=== PATIENT | male | born 1985 | race Two or more races ===

== ENCOUNTER 2021-07-26 00:08 | Emergency (ER) | payer MEDICAID, SELFPAY ==
[2021-07-26 00:29] VITALS: BP 125/77; PULSE 107; RESP 16; TEMP 37.8; O2SAT 97; BMI 41.0
[2021-07-26 00:59] LABS: COVID-19 Test Positive (Negative); IDNOW Serial# 9DD0AD1C; Strep A Nucleic Acid Negative (Negative)
--- NOTE | 2021-07-26 01:25 | ED_ITS ---
HPI - General Adult General Chief complaint: General Medical Stated complaint: throat pain, fever Time Seen by Provider: 07/26/21 01:25 Source: patient Mode of arrival: ambulatory Limitations: no limitations History of Present Illness HPI narrative: Patient will remain vaccinated against COVID 19 2 doses last dose was 3 months ago had a contact with colleague who was COVID-19 positive few days ago patient with complaining of throat itchiness body aches cough slight shortness of breath low-grade fever on arrival patient temperature 100.1 degrees saturating 97% on room air Related Data Previous Rx's Medication Instructions Recorded benzonatate 200 mg capsule 200 mg PO TID PRN #20 cap 07/26/21 dexamethasone 6 mg tablet 6 mg PO DAILY #7 tab 07/26/21 (Decadron) Allergies Allergy/AdvReac Type Severity Reaction Status Date / Time No Known Allergies Allergy Verified 07/26/21 00:34 [No Known Allergies*] Review of Systems Review of Systems: Yes all other systems are reviewed and are negative [facility] Social History Social History Advance Directives: No Advance Directives Information Provided: Yes Physical Exam Vital Signs: Vital Signs: Last Vital Signs Temp 100.1 F 07/26/21 00:29 Pulse 107 H 07/26/21 00:29 Resp 16 07/26/21 00:29 BP 125/77 07/26/21 00:29 Pulse Ox 97 07/26/21 00:29 BMI result Body Mass Index 41.0 Appearance: Alert. Oriented X3. No acute distress. ENT: Pharynx normal. Oral Mucosa moist Neck: Normal inspection. Neck supple. CVS: Normal heart rate and rhythm. Pulses normal. Respiratory: No respiratory distress. Equal air entry bilateral, no wheezing/rales/rhonchi Abdomen: Soft and nontender. Skin: Skin warm and dry. Normal skin color. Normal skin turgor. Extremities: No lower extremity edema. No calf tenderness Neuro: Oriented X 3. Medical Decision Making Lab Data Lab results reviewed: Yes I reviewed the patient's lab results. Labs: Lab Results 07/26/21 07/26/21 Range/Units 00:36 00:36 COVID-19 ([facility]) Positive A (Negative) COVID-19 Clin Com See Note S. pyogenes GrpA CASSY Negative (Negative) Discharge Plan Discharge Clinical Impression: COVID-19 Patient Disposition: Home, Self-Care Instructions: COVID-19 (Coronavirus Disease 2019) (ED) Additional Instructions: Social distancing is advised Take medicine as prescribed Report to the ER if increased shortness of breath Prescriptions: New dexamethasone [Decadron] 6 mg tablet 6 mg PO DAILY Qty: 7 RF: 0 benzonatate 200 mg capsule 200 mg PO TID PRN (Reason: cough) Qty: 20 RF: 0
[2021-07-26] MEDS: dexAMETHasone 2 MG TABLET 10 MG PO (01:42)
== END 2021-07-26 01:46 | disposition home or self-care (01) ==
PROVIDERS: Emergency Provider Internal Medicine
DX: U07.1 COVID-19 (principal); R50.9 Fever, unspecified
CPT/HCPCS: 36415; 87635; 87651; 99283; J8540

== ENCOUNTER 2022-11-14 20:30 | Emergency (ER) | payer MEDICAID, SELFPAY ==
[2022-11-14 21:21] VITALS: BP 117/69; PULSE 84; RESP 20; TEMP 36.9; O2SAT 98; BMI 38.0
--- NOTE | 2022-11-14 22:39 | ED.EAR ---
HPI - Ear Problem General Chief complaint: Ear Problems Stated complaint: Q tip stuck in R ear Time Seen by Provider: 11/14/22 21:48 Source: patient Mode of arrival: ambulatory Limitations: no limitations History of Present Illness HPI Narrative: 37-year-old male presents with Q-tip in right ear happened just prior to arrival has not been able to get it out. Reports a fullness in his right ear. Does not report pain, decreased hearing or tinnitus. Related Data Previous Rx's Medication Instructions Recorded benzonatate 200 mg capsule 200 mg PO TID PRN cough #20 caps 07/26/21 dexamethasone 6 mg tablet 6 mg PO DAILY #7 tabs 07/26/21 (Decadron) ciprofloxacin 0.3 %-dexamethasone 4 drp otic (ears) BID 7 days #7.5 11/14/22 0.1 % ear drops,suspension mL (Ciprodex) Allergies Allergy/AdvReac Type Severity Reaction Status Date / Time No Known Allergies Allergy Verified 07/26/21 00:34 [No Known Allergies*] Review of Systems Review of Systems: Constitutional : No Weight loss, No Fever, No Chills, No Fatigue, No Malaise ENT/Mouth : No sore throat, No Rhinorrhea, + FB sensation in ear Eyes: No Eye Pain, No Swelling, No Redness Cardiovascular : No Chest Pain, No SOB, No Dyspnea on Exertion, No Orthopnea, No Edema, No Palpitations Respiratory : No Cough, No Sputum, No Wheezing Gastrointestinal : No Nausea, No Vomiting, No Diarrhea, No Constipation, No abdominal Pain, No Hematochezia, No Melena Genitourinary : No Dysuria, No Urinary Frequency, No Hematuria, Musculoskeletal : No joint pain, No Myalgias, No Joint Swelling Skin : No Skin Lesions, No rash Neuro : No Weakness, No Numbness, No Dizziness, No Headache Psych : No Anxiety/Panic, No Depression Heme/Lymph: No Bruising, No Bleeding,No Lymphadenopathy All other systems reviewed and are negative Yes all other systems are reviewed and are negative [facility] Past Medical History Attestation statement: The following information was validated with the patient. Source: old records reviewed and nursing notes reviewed Social History Social History Advance Directives: No Advance Directives Information Provided: No Physical Exam Vital Signs: Vital Signs: Last Vital Signs Temp 98.4 F 11/14/22 21:21 Pulse 84 11/14/22 21:21 Resp 20 11/14/22 21:21 BP 117/69 11/14/22 21:21 Pulse Ox 98 11/14/22 21:21 BMI result Body Mass Index 38.0 vss Appearance: Alert.? Oriented X3.? No acute distress.? Head: Normocephalic, atraumatic, no step-offs or deformities Eyes: Pupils equal, round and reactive to light.? ENT: Pharynx normal.?+ R ear w/ Qtip in ear canal, canal w/ errythema . Gross hearing intact bilaterally. Neck: Normal inspection.? Neck supple.? CVS: Normal heart rate and rhythm.? Pulses normal.? Respiratory: No respiratory distress.? Breath sounds normal.? Abdomen: Soft and nontender.? Skin: Skin warm and dry.? Normal skin color.? Normal skin turgor.? Extremities: 5/5 strength to bilateral upper and lower extremities Neuro: Oriented X 3.? No motor deficit.? No sensory deficit. CN 2-12 intact Course Reevaluation(s) Reevaluation #1: As able to get Q-tip out using forceps and suction, afterwards I did irrigate ear with water to get remainder of small pieces out. Patient tolerated procedure well. Will have him follow-up with ear nose and throat if pain persists, after getting Q-tip out there is erythema and ear canal therefore sending home with Ciprodex. Time: 22:42 Medical Decision Making Medical Decision Making MDM Narrative: 37-year-old male presents with discomfort in right ear after getting a Q-tip stuck in it. Physical exam significant for R ear w/ Qtip in ear canal, canal w/ errythema . Gross hearing intact bilaterally. Discomfort in ear likely secondary to foreign body. No signs of otitis media, otitis externa or mastoiditis. No signs of perforated tympanic membrane Plan will try to get it out with forceps Differential Diagnosis Differential Diagnoses: The differential diagnosis associated with the presentation includes Discomfort in ear likely secondary to foreign body. No signs of otitis media, otitis externa or mastoiditis. No signs of perforated tympanic membrane Admission/Observation Consideration of admission/observation: Escalation of care including admission/observation considered Unlikely Core Measures AMI core measures followed: Yes Measure exclusions: not indicated Discharge Plan Discharge Clinical Impression: Foreign body in ear Patient Disposition: Home, Self-Care Instructions: Ear Foreign Body (ED) Additional Instructions: Take your medications as prescribed. If you were prescribed antibiotics today, it is important that you take your medication to their entirety, do not skip any doses, do not finish them early. Follow-up with your primary care provider this week. Follow up with ear, nose and throat Return to the emergency department with new or worsening symptoms. In case of emergency call 911 Do not put Q-tips in your ear [place] [facility] seg?n lo prescrito. Si le recetaron antibi?ticos hoy, es importante que tome pedersen medicamento en pedersen totalidad, no se salte ninguna dosis, no los termine antes de tiempo. Seguimiento con pedersen proveedor de atenci?n primaria esta semana. Seguimiento de otorrinolaringolog?a Regrese al departamento de emergencias con s?ntomas nuevos o que empeoran. En codie de emergencia llama al 911 No coloque Q-tips en pedersen o?do Prescriptions: New ciprofloxacin-dexamethasone [Ciprodex] 0.3-0.1 % drops,suspension 4 drp otic (ears) BID 7 Days Qty: 7.5 0RF No Action dexamethasone [Decadron] 6 mg tablet 6 mg PO DAILY Qty: 7 0RF benzonatate 200 mg capsule 200 mg PO TID PRN (Reason: cough) Qty: 20 0RF Referrals: Chuck Roa MD [Primary Care Provider] - 2 days
== END 2022-11-14 22:44 | disposition home or self-care (01) ==
PROVIDERS: Emergency Provider Emergency Medicine; PCP Internal Medicine Geriatric Medicine
DX: T16.1XXA Foreign body in right ear, initial encounter (principal); W45.8XXA Other foreign body or object entering through skin, initial encounter; Y93.E8 Activity, other personal hygiene; Y92.019 Unspecified place in single-family (private) house as the place of occurrence of the external cause; Y99.9 Unspecified external cause status
CPT/HCPCS: 69200; 99282; 99283

== ENCOUNTER 2022-12-25 08:43 | Emergency (ER) | payer MEDICAID, SELFPAY ==
[2022-12-25 08:52] VITALS: BP 127/83; PULSE 100; RESP 16; TEMP 37; O2SAT 98; BMI 38.6
[2022-12-25 09:26] LABS: IDNOW Serial# 08D9AD1C; Strep A Nucleic Acid Negative (Negative)
--- NOTE | 2022-12-25 09:26 | ED.URI ---
HPI - URI/Sore Throat General Chief Complaint: Upper Respiratory Symptoms Stated Complaint: Sore throat Time Seen by Provider: 12/25/22 09:19 Source: patient Mode of arrival: ambulatory Limitations: no limitations History of Present Illness HPI Narrative: 37 yo male who endorses 5 days of sore throat and dry cough. He states his throat pain is getting worse, and he also endorse headache and tight chest at night. He denies other chest pain and SOB. He endorses some diarrhea last week, but no abdominal pain. He took some cough medicine for his symptoms. He denies sick contacts. MD elicited complaint: cough and sore throat Onset (ago): day(s) (5) Consistency: progressively worsening Description of mucous: clear Able to tolerate fluids by mouth: Yes Exacerbating factors: swallowing Relieving factors: lozenge Associated symptoms: headache, sore throat and cough Treatments prior to arrival: cold medicine Related Data Previous Rx's Medication Instructions Recorded benzonatate 200 mg capsule 200 mg PO TID PRN cough #20 caps 07/26/21 dexamethasone 6 mg tablet 6 mg PO DAILY #7 tabs 07/26/21 (Decadron) ciprofloxacin 0.3 %-dexamethasone 4 drp otic (ears) BID 7 days #7.5 11/14/22 0.1 % ear drops,suspension mL (Ciprodex) Allergies Allergy/AdvReac Type Severity Reaction Status Date / Time No Known Allergies Allergy Verified 07/26/21 00:34 [No Known Allergies*] Review of Systems Review of Systems: Yes all other systems are reviewed and are negative [facility] Social History Social History Advance Directives: No Advance Directives Information Provided: Yes Physical Exam Vital Signs: Vital Signs: Last Vital Signs Temp 98.6 F 12/25/22 08:52 Pulse 100 12/25/22 08:52 Resp 16 12/25/22 08:52 BP 127/83 12/25/22 08:52 Pulse Ox 98 12/25/22 08:52 O2 Del Method Room Air 12/25/22 08:52 BMI result Body Mass Index 38.6 Appearance: Alert. Oriented X3. No acute distress. ENT: Pharynx slightly erythematous. No tonsillar swelling or exudate. uvula midline, normal voice Neck: Normal inspection. CVS: Normal heart rate and rhythm. SLightly tachycardic. Respiratory: No respiratory distress. Breath sounds normal. Abdomen: Soft and nontender. +BS x4 Skin: Skin warm and dry. Normal skin color. Neuro/psych: Oriented X 3. No motor deficit. No sensory deficit. . Normal speech and cognition. Medical Decision Making Medical Decision Making [facility] Narrative: Patient presented with a sore throat. He had a negative covid and strep so this is most likely another viural URI. He denies SOB or chest pain, so this is unlikely to be pneumonia or bronchitis. Patient is stable for discharge and can manage his symptoms with NSAIDs and cold medicine at home. Differential Diagnosis Differential Diagnoses: The differential diagnosis associated with the presentation includes URI covid strep bronchitis pneumonia Lab Data [facility] Lab Attestation statement: I reviewed the patient's lab results. Labs: Lab Results 12/25/22 12/25/22 Range/Units 08:56 09:44 COVID-19 ([facility]) Negative (Negative) COVID-19 Clin Com See Note S. pyogenes GrpA CASSY Negative (Negative) External Record Review External record reviewed: Prior outpatient labs Tests considered The following testing was considered but not selected: cxr considered - lungs clear, saturating well Prescription Management I considered prescription management with: Pain Medication and Antibiotic Critical Care Time Critical Care Time Critical Care Time: No Discharge Plan Discharge Clinical Impression: Upper respiratory infection Patient Disposition: Home, Self-Care Instructions: Upper Respiratory Infection (DC) Additional Instructions: You came to the ED for a sore throat. We performed a strep and covid test on you, and both were negative. Your symptoms are most consistent with a viral infection. Use motrin and cold medicine for your symptoms as needed. Prescriptions: No Action dexamethasone [Decadron] 6 mg tablet 6 mg PO DAILY Qty: 7 0RF benzonatate 200 mg capsule 200 mg PO TID PRN (Reason: cough) Qty: 20 0RF ciprofloxacin-dexamethasone [Ciprodex] 0.3-0.1 % drops,suspension 4 drp otic (ears) BID 7 Days Qty: 7.5 0RF Stand Alone Forms: Work/School Release Interventions: ED Discharge Assessment Last Done: 12/25/22 10:40 Discharge Date/Time: 12/25/22 10:40
[2022-12-25 10:11] LABS: COVID-19 Test Negative (Negative); IDNOW Serial# 08D9AD1C
== END 2022-12-25 10:40 | disposition home or self-care (01) ==
PROVIDERS: Physician Assistant; Emergency Provider Emergency Medicine; PCP Internal Medicine Geriatric Medicine
DX: J06.9 Acute upper respiratory infection, unspecified (principal); R05.9 Cough, unspecified; Z20.822 Contact with and (suspected) exposure to COVID-19; Z20.828 Contact with and (suspected) exposure to other viral communicable diseases; Z79.899 Other long term (current) drug therapy
CPT/HCPCS: 87635; 87651; 99282; 99283

== ENCOUNTER 2024-11-24 02:35 | Emergency (ER) | payer SELFPAY ==
[2024-11-24 02:45] VITALS: BP 150/91; PULSE 73; RESP 16; TEMP 36.6; O2SAT 100; BMI 41.0
[2024-11-24 04:00] VITALS: BP 150/91; PULSE 73; RESP 16; TEMP 36.6; O2SAT 100
--- NOTE | 2024-11-24 04:01 | ED_ITS ---
HPI - Dental/Oral General Chief complaint: Dental/Oral Stated complaint: Dental Pain Time Seen by Provider: 11/24/24 04:00 Source: patient Mode of arrival: ambulatory Limitations: no limitations History of Present Illness ED Provider: DR. Hirsch HPI Narrative: 39-year-old male came in for evaluation of dental pain x2 weeks, patient was chewing food 2 weeks ago and broke right 3rd molar tooth has been having dental pain, that is progressively getting worse tonight is the worst that made him come to the hospital. Related Data Previous Rx's ?Medication ?Instructions ?Recorded benzonatate 200 mg capsule 200 mg PO TID PRN cough #20 caps 07/26/21 dexamethasone 6 mg tablet 6 mg PO DAILY #7 tabs 07/26/21 (Decadron) ciprofloxacin 0.3 %-dexamethasone 4 drp otic (ears) BID 7 days #7.5 11/14/22 0.1 % ear drops,suspension mL (Ciprodex) amoxicillin 500 mg tablet 500 mg PO BID #14 tabs 11/24/24 ibuprofen 800 mg tablet 800 mg PO Q8H PRN pain #14 tabs 11/24/24 Allergies Allergy/AdvReac Type Severity Reaction Status Date / Time No Known Allergies Allergy Verified 11/24/24 02:49 [No Known Allergies*] Review of Systems 2 Review of Systems: All other systems are reviewed and are negative Constitutional: Reports as per HPI and Reports no additional constitutional complaints Eyes: Reports as per HPI and Reports no additional eye complaints Reports system reviewed and no additional complaints, except as documented Cardiovascular: Reports as per HPI and Reports no additional cardiovascular complaints Respiratory: Reports as per HPI and Reports no additional respiratory complaints Gastrointestinal: Reports as per HPI and Reports no additional gastrointestinal complaints Genitourinary: Reports no additional female genitourinary complaints Musculoskeletal: Reports no additional musculoskeletal complaints Skin/Breast: Reports system reviewed and no additional complaints, except as docu Psychiatric: Reports no additional psychiatric complaints Endocrine: Reports no additional endocrine complaints Hematologic/Lymphatic: Reports no additional hematologic/lymphatic complaints Allergic/Immunologic: Reports no additional allergic/immunologic complaints Reports system reviewed and no additional complaints, except as documented and Reports Abnormal speech present [facility] Social History Social History Smoked in Last 30 Days: No Use of substances other than those prescribed or required for medical reasons: No Advance Directives: No Advance Directives Information Provided: Yes Do you have a plan to hurt others: No Plan Physical Exam 2 Vital Signs: Vital Signs: Last Vital Signs Temp 97.8 F 11/24/24 02:45 Pulse 73 11/24/24 02:45 Resp 16 11/24/24 02:45 BP 150/91 H 11/24/24 02:45 Pulse Ox 100 11/24/24 02:45 O2 Del Method Room Air 11/24/24 02:45 BMI result Body Mass Index 41.0 Vital signs have been reviewed and appear to be correct. Blood pressure elevated. Heart rate normal. Respiratory rate normal. Temperature normal. Oxygen saturation normal. Appearance: Alert. Oriented X3. No acute distress. Head: Normal external exam. Normocephalic. Atraumatic. No Bronson signs noted. No raccoon eyes noted Eyes: PERRLA. EOMI. Conjunctiva and sclera normal. Eyelids normal. ENT: TM's Normal. Pharynx normal. Uvula midline. Moist mucous membranes. No trismus noted. No drooling noted. No muffled voice noted. Neck: Normal inspection. Neck supple. FROM. No adenopathy. Thyroid Normal. No meningeal signs. No neck mass noted. CVS: Normal heart rate and rhythm. Heart sound normal. No murmurs noted. Pulses normal throughout. Respiratory: No respiratory distress. Painless inspiration. Breath sounds normal. No wheezes/rales/rhonchi noted. Chest nontender. No accessory muscle usage noted or decreased air movement noted. Abdomen: Soft and nontender. Bowel sounds normal in all 4 quadrants. No distention noted. No organomegaly noted. No visible injury noted. Back: No CVA tenderness. Full range of motion noted. Skin: Skin warm and dry. Normal skin color. Normal skin turgor. No rashes/lesions/lacerations noted. Extremities: No lower extremity edema. Extremities exhibit normal range of motion. Extremities nontender. Neuro: Oriented X 3. Cranial nerve exam: II-XII are grossly intact No motor deficit. No sensory deficit. Reflexes normal. HEENT: Teeth image: 1. Broken tooth, tenderness, tenderness in the surrounding gum, no abscess or drainage. Course Reevaluation(s) Reevaluation #1: Dental pain with mild gingivitis will start on amoxicillin and ibuprofen patient will make an appointment with dentist tomorrow. Time: 04:05 Medical Decision Making Differential Diagnosis Differential Diagnoses: The differential diagnosis associated with the presentation includes ( Dental pain, dental infection, dental abscess, facial cellulitis.) Admission/Observation Consideration of admission/observation: Escalation of care including admission/observation considered Discharge Plan Discharge Clinical Impression: Toothache, Dental infection Patient Disposition: Home, Self-Care Instructions: Toothache (ED) Additional Instructions: follow-up with your dentist as we discussed. Prescriptions: New amoxicillin 500 mg tablet 500 mg PO BID Qty: 14 0RF ibuprofen 800 mg tablet 800 mg PO Q8H PRN (Reason: pain) Qty: 14 0RF No Action dexamethasone [Decadron] 6 mg tablet 6 mg PO DAILY Qty: 7 0RF benzonatate 200 mg capsule 200 mg PO TID PRN (Reason: cough) Qty: 20 0RF ciprofloxacin-dexamethasone [Ciprodex] 0.3-0.1 % drops,suspension 4 drp otic (ears) BID 7 Days Qty: 7.5 0RF Print Language: [place]
[2024-11-24] MEDS: Amoxicillin 500 MG CAPSULE PO (05:04)
[2024-11-24] MEDS: Ibuprofen 800 MG TABLET PO (05:04)
[2024-11-24 05:09] VITALS: BP 150/91; PULSE 73; RESP 16; TEMP 36.6; O2SAT 100
== END 2024-11-24 05:09 | disposition home or self-care (01) ==
PROVIDERS: Emergency Provider Emergency Medicine; PCP Internal Medicine Geriatric Medicine
DX: K04.7 Periapical abscess without sinus (principal); K08.89 Other specified disorders of teeth and supporting structures
CPT/HCPCS: 99283; 99284